=== PATIENT | female | born 1965 | race Caucasian/White ===

== ENCOUNTER 2024-12-24 15:56 | Emergency (ER) | payer MEDICARE ==
[2024-12-24] MEDS ORDERED: ATIVAN 2 MG/ML MDV FOR SINGLE DOSES IV ONE (16:10)
[2024-12-24 16:16] LABS: BASOPHIL % 1.0 % (0.1-1.2); Basophil (Absolute #) 0.10 x10^3/uL (0.01-0.08); Eosinophil (Absolute #) 0.31 x10^3/uL (0.04-0.36); Hematocrit 33.3 % (34.1-44.9); Hemoglobin 10.1 g/dL (11.2-15.7); IMMATURE GRAN # 0.08 x10^3u/L (0.001-0.031); IMMATURE GRAN % 0.8 % (0.001-0.429); Lymphocyte (Absolute #) 2.45 x10^3/uL (1.18-3.74); Mean Corpuscular Hemoglobin 31.6 pg (25.6-32.2); Mean Corpuscular Hgb Concent. 30.3 g/dL (32.2-35.5); Monocyte (Absolute #) 0.65 x10^3/uL (0.24-0.86); NUCLEATED RBC # 0.00 x10^3u/L (0.00-0.012); NUCLEATED RBC % 0.0 % (0.00-0.2); Platelet Count 179 x10^3/uL (182-369); Red Blood Count 3.20 x10^6/uL (3.93-5.22); White Blood Count 10.5 x10^3/uL (3.98-10.04)
--- NOTE | 2024-12-24 16:16 | ERPHSYRPT ---
- History of Present Illness Time Seen by Provider: 12/24/24 16:00 Source: family, EMS Physician History: By report patient is a dialysis patient that had recently been tried. No dialysis. Patient reports that she was at [facility] 2 weeks ago after transfer. States that she developed respiratory failure associated with a peritoneal dialysis. He reports that today she was feeling fine had been doing her typical dialysis. She is set for hemodialysis this week. Reports she suddenly began feeling acutely short of breath and states that she could not catch her breath similar to prior episodes. Denies chest pain. EMS arrival the patient respiratory arrested. She was bagged on arrival to the ER.She been given ketamine and route. Allergies/Adverse Reactions: cefadroxil Allergy (Verified 12/24/24 16:19) cephalexin [From Keflex] Allergy (Verified 12/24/24 16:19) clindamycin Allergy (Verified 12/24/24 16:19) empagliflozin [From Jardiance] Allergy (Verified 12/24/24 16:19) rifampin Allergy (Verified 12/24/24 16:19) Home Medications: Bumetanide 1 mg [Bumex 1 mg] 2 mg PO DAILY 07/01/24 [History] Gabapentin [Neurontin ] 600 mg PO BID 07/01/24 [History] Methadone HCl 140 mg PO DAILY 07/01/24 [History] Midodrine HCl [Proamatine] 5 mg PO DAILY 12/10/24 [History] - Nursing Vital Signs Nursing Vital Signs: Initial Vital Signs Pulse Rate 98 H 12/24/24 15:56 Respiratory Rate 4 L 12/24/24 15:56 Blood Pressure 148/71 12/24/24 15:56 O2 Sat by Pulse Oximetry 83 L 12/24/24 15:56 - Physical Exam General Appearance: other (Patient arrived with struggling respiratory effort and was not verbally responsive.) Neck Exam: normal inspection Respiratory Exam: other (Manage bilateral) Cardiovascular Exam: regular rate/rhythm Extremity Exam: other (Lower extremity amputee) SpO2 Interpretation: hypoxic Ordered Tests: Active Orders 24 hr Category Date Time Status Delivery Sales Worker STAT Care 12/24/24 15:59 Active Catheter-[place] Gomes STAT Care 12/24/24 15:58 Active EKG-ER Only STAT Care 12/24/24 15:58 Active IV Insertion STAT Care 12/24/24 15:58 Active Oxygen-ED Only NON-REBREATHER 100% Care 12/24/24 15:58 Active CHEST 1 VIEW (PORTABLE) Stat Exams 12/24/24 15:57 Taken CHEST 1 VIEW (PORTABLE) Stat Exams 12/24/24 16:19 Taken ARTERIAL BLOOD GASES Urgent Lab 12/24/24 16:16 Completed CBC W DIFF Stat Lab 12/24/24 16:08 Completed CMP Stat Lab 12/24/24 16:08 Received CULTURE,URINE Stat Lab 12/24/24 16:01 Ordered Lactic Acid Stat Lab 12/24/24 16:19 Received MAGNESIUM Stat Lab 12/24/24 16:08 Received NT PRO BNPII Stat Lab 12/24/24 16:08 Received UA W/RFX UR CULTURE Stat Lab 12/24/24 16:11 Ordered Urine Triage Profile Stat Lab 12/24/24 16:11 Ordered Medication Summary Generic Name Dose Route Start Last Admin Trade Name Joseph PRN Reason Stop Dose Admin Midazolam HCl 50 mg/ Sodium 250 mls @ 29.95 mls/hr 12/24/24 16:25 Chloride IV 01/23/25 16:24 .[id number] PRN SEDATION Protocol 0.05 MG/KG/HR Discontinued Medications Generic Name Dose Route Start Last Admin Trade Name Freq PRN Reason Stop Dose Admin Sodium Chloride Confirm 12/24/24 16:18 Sodium Chloride 0.9% 250 Ml Administered 12/24/24 16:19 Dose 250 mls @ ud IV .STK-MED ONE Midazolam HCl Confirm 12/24/24 16:18 Midazolam Hcl 50 Mg/10 Ml Vial Administered 12/24/24 16:19 Dose 50 mg .ROUTE .STK-MED ONE Lab/Rad Data: Laboratory Result Diagrams 12/24/24 16:08 Laboratory Results 12/24/24 12/24/24 Range/Units 16:16 16:08 WBC 10.5 H (3.98-10.04) x10^3/uL RBC 3.20 L (3.93-5.22) x10^6/uL Hgb 10.1 L (11.2-15.7) g/dL Hct 33.3 L (34.1-44.9) % MCV 104.1 H (79.4-94.8) fL MCH 31.6 (25.6-32.2) pg MCHC 30.3 L (32.2-35.5) g/dL RDW 13.7 (11.7-14.4) % Plt Count 179 L (182-369) x10^3/uL MPV 10.3 (9.4-12.3) fL Gran % 65.7 (34.0-71.1) % Immature Gran % (Auto) 0.8 H (0.001-0.429) % Nucleat RBC Rel Count 0.0 (0.00-0.2) % Eos # (Auto) 0.31 (0.04-0.36) x10^3/uL Immature Gran # (Auto) 0.08 H (0.001-0.031) x10^3u/L Absolute Lymphs (auto) 2.45 (1.18-3.74) x10^3/uL Absolute Monos (auto) 0.65 (0.24-0.86) x10^3/uL Absolute Nucleated RBC 0.00 (0.00-0.012) x10^3u/L Lymphocytes % 23.3 (19.3-51.7) % Monocytes % 6.2 (4.7-12.5) % Eosinophils % 3.0 (0.7-5.8) % Basophils % 1.0 (0.1-1.2) % Absolute Granulocytes 6.91 H (1.56-6.13) x10^3/uL Basophils # 0.10 H (0.01-0.08) x10^3/uL Puncture Site RIGHT RADIAL pCO2 77 H* (35-45) mmHg pO2 115 H (75-100) mmHg Base Excess -5.2 L (-2.0-2.0) O2 Saturation 96.6 (94-100) g/dF ABG pH 7.12 L* (7.35-7.45) ABG HCO3 25.0 (22-28) ABG O2 Sat (Measured) 98.8 (95-100) % Aung Test YES A-a Gradient 502 a/A Ratio 0.19 Hemoglobin 10.3 Carboxyhemoglobin 1.7 (0.0-6.9) % THgb Methemoglobin 0.5 L (1.4-1.5) % Potassium 3.7 (3.5-5.1) Temperature 37.0 C POC O2 Flow Rate 100 % - Progress Progress Note: 12/24/24 16:13 Patient arrived apneic with EMS being bagged. She bagging was initiated. She was sinus tach on the monitor rate of 100. She had been given ketamine and route airway was established using LMA and she has clear breath sounds bilaterally with sats 99%. IO was placed by EMS team. Blood pressures normal. Chest x-ray was reviewed after patient had been moved slightly right mainstem and endotracheal tube was adjusted to more proximal position. Blood gas was obtained pH 7.12 pCO2 77 pO2 115 on 100%. Potassium is 3.7. Glucose 299. Lactic acid 2.3. Bicarb was 25. EKG was reviewed EKG is sinus tachycardia with interventricular conduction delay.Chest x-ray reviewed low lung volumes bilateral infiltrates. This x-ray was obtained prior to endotracheal tube adjustment. Patient's was updated. Did not have records from [facility]. As she will quire hemodialysis and then management they were contacted at 1615 12/24/24 16:30 Patient was started on a Versed drip after receiving Ativan. She was given 100 mics of fentanyl IV. was updated on the treatment plan. I discussed with Dr. Porfirio Heard at [facility] who accepts the patient to come to the ER at this time for ICU admission. 12/24/24 16:31 He was aware the patient is on mechanical ventilation at this time. - Departure Clinical Impression: Acute respiratory failure, End stage renal disease Condition: Serious Critical Care Time: Yes Critical Care Time(excluding separately billable procedures): Critical 30-74 mins Referrals: GLORIA RAJAN MD [Primary Care Provider, [facility]] - Follow up/PCP as directed
[2024-12-24] MEDS ORDERED: Versed 50 MG/ 10 Ml MDV ONE (16:18)
[2024-12-24 16:26] LABS: A-aADO2 502; ABG HEMOGLOBIN 10.3; ABG POTASSIUM 3.7 (3.5-5.1); ARTERIAL BLD GAS O2 SATURATION 98.8 % (95-100); ARTERIAL BLOOD GAS BASE EXCESS -5.2 (-2.0-2.0); ARTERIAL BLOOD GAS FIO2 100 %; ARTERIAL BLOOD GAS PO2 115 mmHg (75-100); ARTERIAL BLOOD GAS TEMPERATURE 37.0 C; HCO3- 25.0 (22-28); HGB O2 SAT 96.6 g/dF (94-100); Methhemoglobin 0.5 % (1.4-1.5); paO2 pAO1 0.19
[2024-12-24 16:27] LABS: ARTERIAL BLOOD GAS PCO2 77 mmHg (35-45)
[2024-12-24 16:28] LABS: ABG SITE RIGHT RADIAL; ALLEN TEST OK? YES
[2024-12-24] MEDS ORDERED: SUBLIMAZE 100 MCG/2 ML ONE (16:30)
--- NOTE | 2024-12-24 16:34 | XRAY ---
Indication: Intubation. Comparison: None Portable chest demonstrates endotracheal tube tip in right mainstem bronchus, pulled back on subsequent chest radiograph. Lungs underinflated with prominent interstitial lung markings. No consolidation/large effusion, or pneumothorax. Heart not enlarged with right double-lumen dialysis catheter. Bony thorax intact with osteopenia and moderate dextro rotoscoliosis centered at T7.
--- NOTE | 2024-12-24 16:36 | XRAY ---
Indication: Tube adjustment. NG tube placement. Comparison: Taken earlier in the day. Portable chest demonstrates withdrawal of endotracheal tube with tip seen 8 mm above ozzie. New NG tube traverses chest with tip in left upper quadrant abdomen, presumed stomach. Remaining chest unchanged.
[2024-12-24 16:37] LABS: Calcium 7.9 mg/dL (8.4-10.2); Carbon Dioxide 24.0 mmol/L (22-30); Creatinine 1 9.2 mg/dL (0.52-1.04); EST GLOMERULAR FILTRATION RATE 4.6 ML/MIN; Glucose 297.0 mg/dL (74-106); NT PRO BNPII 1020.0 pg/mL (<300); Potassium 3.9 mmol/L (3.5-5.1); SGOT/AST 45.0 U/L (14-36); SGPT/ALT 24.0 U/L (0-35); Total Protein 8.5 g/dL (6.3-8.2)
[2024-12-24 17:01] LABS: Glucose, Urine 500 mg/dL (Negative); Protein,Urine Dip Trace (Negative); WBC 0-2 /HPF (0-5)
[2024-12-24 17:14] VITALS: BP 131/69; PULSE 99; RESP 25; O2SAT 100
[2024-12-24 17:20] LABS: Amphetamine,Urine NEGATIVE (NEGATIVE); Barbiturate,Urine NEGATIVE (NEGATIVE); Benzodiazepine,Urine POSITIVE (NEGATIVE); Cocaine,Urine NEGATIVE (NEGATIVE); Methadone,Urine POSITIVE (NEGATIVE); Opiate,Urine NEGATIVE (NEGATIVE); PCP,Urine NEGATIVE (NEGATIVE); THC,Urine NEGATIVE (NEGATIVE)
[2024-12-24] MEDS: SUBLIMAZE 100 MCG/2 ML IV ONE (17:42)
[2024-12-24] MEDS: VERSED 5 MG/5 ML IV ONE ×2 (17:43)
[2024-12-24] MEDS: Versed 50 MG/ 10 Ml MDV*** 50 MG in Sodium Chloride 0.9% 250 ML 240 ML IV PRN (17:44)
== END 2024-12-24 16:56 | disposition short-term general hospital (02) ==
LOC: ED 15:56
DX: J96.00 Acute respiratory failure, unspecified whether with hypoxia or hypercapnia (principal); N18.6 End stage renal disease

== ENCOUNTER 2025-01-25 18:11 | Emergency (ER) | payer MEDICARE ==
[2025-01-25 18:21] VITALS: TEMP 98.1
[2025-01-25 18:45] LABS: BASOPHIL % 0.7 % (0.1-1.2); Basophil (Absolute #) 0.03 x10^3/uL (0.01-0.08); Eosinophil (Absolute #) 0.11 x10^3/uL (0.04-0.36); Hematocrit 33.6 % (34.1-44.9); Hemoglobin 10.5 g/dL (11.2-15.7); IMMATURE GRAN # 0.02 x10^3u/L (0.001-0.031); IMMATURE GRAN % 0.4 % (0.001-0.429); Lymphocyte (Absolute #) 0.80 x10^3/uL (1.18-3.74); Mean Corpuscular Hemoglobin 32.3 pg (25.6-32.2); Mean Corpuscular Hgb Concent. 31.3 g/dL (32.2-35.5); Monocyte (Absolute #) 0.21 x10^3/uL (0.24-0.86); NUCLEATED RBC # 0.00 x10^3u/L (0.00-0.012); NUCLEATED RBC % 0.0 % (0.00-0.2); Platelet Count 104 x10^3/uL (182-369); Red Blood Count 3.25 x10^6/uL (3.93-5.22); White Blood Count 4.6 x10^3/uL (3.98-10.04)
[2025-01-25 19:00] LABS: Creatinine 1 4.59 mg/dL (0.52-1.04); EST GLOMERULAR FILTRATION RATE 10.6 ML/MIN; SGOT/AST 44 U/L (14-36); SGPT/ALT 28 U/L (0-35)
[2025-01-25 19:02] LABS: Carbon Dioxide 30 mmol/L (22-30); Total Protein 8.3 g/dL (6.3-8.2)
[2025-01-25 19:09] LABS: NT PRO BNPII 3690.0 pg/mL (<300)
[2025-01-25 19:11] LABS: CK-Creatinine Phosphokinase 52 U/L (30-135); Calcium 8.0 mg/dL (8.4-10.2); Glucose 330 mg/dL (74-106); Potassium 3.7 mmol/L (3.5-5.1); TROPONIN < 0.012 ng/mL (0.000-0.033)
[2025-01-25] MEDS ORDERED: MAGNESIUM SULF 2 G/50 ML BAG 2 GM/50 ML PIGGYBACK IV ONE (20:43)
[2025-01-25] MEDS: MAGNESIUM SULF 2 G/50 ML BAG 2 GM/50 ML PIGGYBACK IV ONE (20:46)
--- NOTE | 2025-01-25 20:47 | ERPHSYRPT ---
- History of Present Illness Time Seen by Provider: 01/25/25 19:20 Source: patient Exam Limitations: no limitations Patient Subjective Stated Complaint: patient brought in by ems for burning sensation in her chest thats going down both arms Triage Nursing Assessment: patient brought in by ems says she has aidan ahving burning sensation in her chest that goes leigh ann nboth of her arms off and on all day. elena had dialysis yesterday, she does have distended abdomen, lung sounds diminished, brusing noted on arms, patient is alert and oriented x4. elena states she was here a few weeks ago for respiratory failure nad was on a vent. Physician History: 59 yr F with hx of ESRD on HD MWF, DM s/p prior LLE amputation, and AAA s/p endograft presenting with with an intermittent tingling sensation in her chest. She had a full session of dialysis today and she was at her dry weight. She took a dose of bumex upon returning home and shortly afterwards, she started having an intermittent tingling sensation involving her chest and whole body. Episodes of tingling last about one minute. Episodes are not exertional or pleuritic in nature. No associated shortness of breath, cough, sputum production, fevers, or chills Allergies/Adverse Reactions: cefadroxil Allergy (Verified 01/25/25 19:07) cephalexin [From Keflex] Allergy (Verified 01/25/25 19:07) clindamycin Allergy (Verified 01/25/25 19:07) empagliflozin [From Jardiance] Allergy (Verified 01/25/25 19:07) rifampin Allergy (Verified 01/25/25 19:07) Home Medications: Bumetanide 1 mg [Bumex 1 mg] 2 mg PO DAILY 07/01/24 [History] Gabapentin [Neurontin ] 600 mg PO BID 07/01/24 [History] Methadone HCl 140 mg PO DAILY 07/01/24 [History] Fluticasone/Umeclidin/Vilanter [Trelegy Ellipta 100-62.5-25] 1 puff IH DAILY 01/25/25 [History] Midodrine HCl 10 mg PO TID 01/25/25 [History] Pen Needle, Diabetic [Benita 2Nd Gen Pen Needle] 4 ndl SQ DAILY 01/25/25 [History] Hx Tetanus, Diphtheria Vaccination/Date Given: Yes Hx Influenza Vaccination/Date Given: No Hx Pneumococcal Vaccination/Date Given: No Immunizations Up to Date: Yes Travel Risk - International Travel Have you traveled outside of the country in past 3 weeks: No - Emerging Infectious Disease Are you exhibiting symptoms associated with any current EIDs: No Symptoms: Shortness of Breath - Past Medical History Pertinent Past Medical History: Yes (See HPI for details) Neurological History: Peripheral Neuropathy, Stroke Cardiac History: High Cholesterol, Hypertension Respiratory History: No Pertinent History Endocrine Medical History: Diabetes Type II Musculoskeletal History: Arthritis History: Dialysis, Renal Disease Other Medical History: AAA (2021), STROKES (7>), 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 SENSATION IN LLE POST AMPUTATION, PSOROSIS, CKD (STAGE 4), SCOLIOSIS - Past Surgical History Past Surgical History: Yes Gastrointestinal: Appendectomy Musculoskeletal: Amputation Female Surgical History: Section, Tubal Ligation Other Surgical History: AAA repair - Social History Smoking Status: Current every day smoker Exposure to second hand smoke: Yes - Social Determinants of Health Will the patient participate in the screening: Yes Do you worry about a steady place to live?: No Do you have any problems with any of the following?: No known problems In the past 12 months,have you had to go without utilities?: No Transportation Issues: No Has anyone in your support network made you feel unsafe?: No Have you or anyone in your house had to go w/o enough food: No - Nursing Vital Signs Nursing Vital Signs: Initial Vital Signs Pulse Rate 78 01/25/25 18:10 Respiratory Rate 13 01/25/25 18:10 Blood Pressure 164/75 01/25/25 18:10 O2 Sat by Pulse Oximetry 98 01/25/25 18:10 Pain Scale Pain Intensity 0 - Physical Exam SpO2: 98 Comments: 01/25/25 20:48 General: Nonacute distress HEENT: NCAT CV: NS1/S2, wwp Resp normal work of breathing, CTAB Abdomen: Soft nontender Extremities: Left lower extremity amputation, trace right lower extremity edema Skin: Normal cap refill Neuro: Alert oriented x 3, normal speech, BETTYE Psych: Cooperative, speech nonpressured - Course Nursing assessment & vital signs reviewed: Yes EKG Interpreted by Me: Other - Radiology Exams Chest X-ray Interpretation: Other (Improved bibasilar opacities compared to previous study on 12/24/24. Stable cardiac silhouette and mediastinum.) Ordered Tests: Active Orders 24 hr Category Date Time Status Fish Seiner STAT Care 01/25/25 18:21 Active EKG-ER Only STAT Care 01/25/25 18:20 Completed IV Insertion STAT Care 01/25/25 18:20 Active POCT Glucose Check ONCE Care 01/25/25 20:31 Active Pulse Oximetry (ED) STAT Care 01/25/25 18:20 Active CHEST 1 VIEW (PORTABLE) Stat Exams 01/25/25 18:20 Taken CBC W DIFF Stat Lab 01/25/25 18:30 Completed CK-Creatinine Phosphokinase Stat Lab 01/25/25 18:30 Completed CMP Stat Lab 01/25/25 18:30 Completed LIPASE Stat Lab 01/25/25 18:30 Completed MAGNESIUM Stat Lab 01/25/25 18:30 Completed NT PRO BNPII Stat Lab 01/25/25 18:30 Completed POCT GLUCOSE Stat Lab 01/25/25 20:51 Completed TROPONIN Stat Lab 01/25/25 18:30 Completed TROPONIN Stat Lab 01/25/25 20:53 Completed Medication Summary Discontinued Medications Generic Name Dose Route Start Last Admin Trade Name Freq PRN Reason Stop Dose Admin Magnesium Sulfate/Water 2 gm in 50 mls @ 999 mls/hr 01/25/25 20:31 01/25/25 21:01 Magnesium Sulf 2 G/50 Ml Bag IV 01/25/25 20:33 Infused ONCE ONE Infusion Magnesium Sulfate/Water Confirm 01/25/25 20:43 Magnesium Sulf 2 G/50 Ml Bag Administered 01/25/25 20:44 Dose 2 gm in 50 mls @ ud IV .ST-MED ONE Lab/Rad Data: Laboratory Result Diagrams 01/25/25 18:30 01/25/25 18:30 Laboratory Results 01/25/25 01/25/25 01/25/25 Range/Units 20:53 20:51 18:30 WBC (3.98-10.04) x10^3/uL RBC (3.93-5.22) x10^6/uL Hgb (11.2-15.7) g/dL Hct (34.1-44.9) % MCV (79.4-94.8) fL MCH (25.6-32.2) pg MCHC (32.2-35.5) g/dL RDW (11.7-14.4) % Plt Count (182-369) x10^3/uL MPV (9.4-12.3) fL Gran % (34.0-71.1) % Immature Gran % (Auto) (0.001-0.429) % Nucleat RBC Rel Count (0.00-0.2) % Eos # (Auto) (0.04-0.36) x10^3/uL Immature Gran # (Auto) (0.001-0.031) x10^3u/L Absolute Lymphs (auto) (1.18-3.74) x10^3/uL Absolute Monos (auto) (0.24-0.86) x10^3/uL Absolute Nucleated RBC (0.00-0.012) x10^3u/L Lymphocytes % (19.3-51.7) % Monocytes % (4.7-12.5) % Eosinophils % (0.7-5.8) % Basophils % (0.1-1.2) % Absolute Granulocytes (1.56-6.13) x10^3/uL Basophils # (0.01-0.08) x10^3/uL Sodium (135-145) mmol/L Potassium (3.5-5.1) mmol/L Chloride (98-107) mmol/L Carbon Dioxide (22-30) mmol/L Anion Gap (5-15) MEQ/L BUN (7-17) mg/dL Creatinine (0.52-1.04) mg/dL Estimated GFR ML/MIN Glucose (74-106) mg/dL POC Glucometer 235 H (74 to 106) mg/dL Calcium (8.4-10.2) mg/dL Magnesium 2.1 (1.6-2.3) mg/dL Total Bilirubin (0.2-1.3) mg/dL AST (14-36) U/L ALT (0-35) U/L Alkaline Phosphatase (38-126) U/L Creatine Kinase (30-135) U/L Troponin I < 0.012 (0.000-0.033) ng/mL NT-Pro-B Natriuret Pep 3690 (<300) pg/mL Serum Total Protein (6.3-8.2) g/dL Albumin (3.5-5.0) g/dL Lipase 38 (23-300) U/L 01/25/25 01/25/25 Range/Units 18:30 18:30 WBC 4.6 (3.98-10.04) x10^3/uL RBC 3.25 L (3.93-5.22) x10^6/uL Hgb 10.5 L (11.2-15.7) g/dL Hct 33.6 L (34.1-44.9) % MCV 103.4 H (79.4-94.8) fL MCH 32.3 H (25.6-32.2) pg MCHC 31.3 L (32.2-35.5) g/dL RDW 15.2 H (11.7-14.4) % Plt Count 104 L (182-369) x10^3/uL MPV 10.2 (9.4-12.3) fL Gran % 74.5 H (34.0-71.1) % Immature Gran % (Auto) 0.4 (0.001-0.429) % Nucleat RBC Rel Count 0.0 (0.00-0.2) % Eos # (Auto) 0.11 (0.04-0.36) x10^3/uL Immature Gran # (Auto) 0.02 (0.001-0.031) x10^3u/L Absolute Lymphs (auto) 0.80 L (1.18-3.74) x10^3/uL Absolute Monos (auto) 0.21 L (0.24-0.86) x10^3/uL Absolute Nucleated RBC 0.00 (0.00-0.012) x10^3u/L Lymphocytes % 17.4 L (19.3-51.7) % Monocytes % 4.6 L (4.7-12.5) % Eosinophils % 2.4 (0.7-5.8) % Basophils % 0.7 (0.1-1.2) % Absolute Granulocytes 3.44 (1.56-6.13) x10^3/uL Basophils # 0.03 (0.01-0.08) x10^3/uL Sodium 133 L (135-145) mmol/L Potassium 3.7 (3.5-5.1) mmol/L Chloride 88 L (98-107) mmol/L Carbon Dioxide 30 (22-30) mmol/L Anion Gap 18.7 H (5-15) MEQ/L BUN 21 H (7-17) mg/dL Creatinine 4.59 H (0.52-1.04) mg/dL Estimated GFR 10.6 ML/MIN Glucose 330 H (74-106) mg/dL POC Glucometer (74 to 106) mg/dL Calcium 8.0 L (8.4-10.2) mg/dL Magnesium (1.6-2.3) mg/dL Total Bilirubin 1.20 (0.2-1.3) mg/dL AST 44 H (14-36) U/L ALT 28 (0-35) U/L Alkaline Phosphatase 456 H (38-126) U/L Creatine Kinase 52 (30-135) U/L Troponin I < 0.012 (0.000-0.033) ng/mL NT-Pro-B Natriuret Pep (<300) pg/mL Serum Total Protein 8.3 H (6.3-8.2) g/dL Albumin 4.0 (3.5-5.0) g/dL Lipase (23-300) U/L - Progress Progress: improved (Discomfort improved following IV fluids.) Progress Note: 01/25/25 21:37 Patient presents with atypical chest discomfort rating into both arms after dialysis. Discomfort nonexertional and her EKG does show prolonged QTc however no acute ischemic changes. Electrolytes reassuring on labs and troponin negative x 2. Her blood glucose was notably elevated in the 400s upon arrival however down to 200s following IV fluids. Symptoms completely resolved. No clinical suspicion for ACS at this time. Suspect discomfort secondary to fluid shifts from dialysis. She does have an appoint with her primary care doctor more morning 8 AM. Discussed close return precautions back to the ER and she endorsed understanding. Medical Desision Making - Diagnostic Testing Diagnostic test were ordered, analyzed, and reviewed by me: Yes Radiological Interpretation: Interpreted by me - Departure Clinical Impression: Hyperglycemia, ESRD (end stage renal disease) on dialysis Condition: Stable Critical Care Time: No Referrals: GLORIA RAJAN MD [Primary [facility] Provider, [facility]] - Follow up/PCP as directed Instructions: Chest Pain (DC) Additional Instructions: - --Your blood glucose improved to 235 after IV fluids -Your heart enzymes were normal after 2 checks -You are not having a heart attack -Please follow-up with your primary care doctor tomorrow morning at your schedule appointment -Come back to the ER if you have any new or worsening symptoms
[2025-01-25 21:03] VITALS: BP 135/67; PULSE 65; RESP 14
[2025-01-25 21:36] VITALS: O2SAT 98
--- NOTE | 2025-01-26 08:42 | XRAY ---
Indication: Chest pain. Comparison: December 24, 2024 Portable chest better inflated and is now clear. Heart not enlarged again with right double-lumen dialysis catheter. Bony thorax intact again with osteopenia, degenerative changes, and dextrorotoscoliosis. Impression: Nonacute chest with chronic features.
== END 2025-01-25 21:45 | disposition home or self-care (01) ==
LOC: ED 18:11
DX: E11.65 Type 2 diabetes mellitus with hyperglycemia (principal); E11.22 Type 2 diabetes mellitus with diabetic chronic kidney disease; I12.0 Hypertensive chronic kidney disease with stage 5 chronic kidney disease or end stage renal disease; N18.6 End stage renal disease; Z99.2 Dependence on renal dialysis; Z79.891 Long term (current) use of opiate analgesic; Z79.899 Other long term (current) drug therapy; Z72.0 Tobacco use